=== PATIENT | female | born 1985 | race Caucasian/White ===

== ENCOUNTER 2019-02-18 09:55 | Emergency (ER) | payer OTHER ==
[~2019-02-18] VITALS: Ht 170.2 cm; Wt 67.5 kg
[2019-02-18 09:56] VITALS: BP 118/65
[2019-02-18] MEDS ORDERED: ONDANSETRON 4MG/2ML VIAL (J2405) IV ONE (10:15)
[2019-02-18] MEDS ORDERED: NS 1,000 ML IV ONE (10:15)
[2019-02-18 10:42] LABS: BASO % 0.7 % (0.0-1.0); EOS % 0.9 % (0.0-3.0); HEMATOCRIT 44.1 % (36.0-47.0); HEMOGLOBIN 14.8 g/dl (12.0-15.5); LYMPH # 1.2 10^3/uL (1.5-4.5); LYMPH % 24.9 % (24.0-44.0); MEAN CORPUSCULAR HEMOGLOBIN 34.2 pg (27.0-33.0); MEAN CORPUSCULAR HGB CONC 33.6 g/dl (32.0-36.5); MEAN CORPUSCULAR VOLUME 101.8 fl (80.0-96.0); MONO # 0.3 10^3/uL (0.0-0.8); MONO % 7.2 % (0.0-5.0); NEUTROPHILS # 3.1 10^3/uL (1.8-7.7); NEUTROPHILS % 66.1 % (36.0-66.0); PLATELET COUNT, AUTOMATED 229 10^3/uL (150-450); RED BLOOD COUNT 4.33 10^6/uL (4.00-5.40); WHITE BLOOD COUNT 4.6 10^3/uL (4.0-10.0)
[2019-02-18 11:10] LABS: ALT/SGPT 16 U/L (12-78); BLOOD UREA NITROGEN 6 MG/DL (7-18); CALCIUM LEVEL 8.7 MG/DL (8.5-10.1); CARBON DIOXIDE LEVEL 31 MEQ/L (21-32); CHLORIDE LEVEL 107 MEQ/L (98-107); CREATININE FOR GFR 0.72 MG/DL (0.55-1.30); GLOMERULAR FILTRATION RATE > 60.0 (>60); GLUCOSE, FASTING 79 MG/DL (70-100); POTASSIUM SERUM 3.9 MEQ/L (3.5-5.1); SODIUM LEVEL 142 MEQ/L (136-145)
[2019-02-18 11:11] LABS: ALBUMIN 3.6 GM/DL (3.2-5.2); BILIRUBIN,DIRECT 0.2 MG/DL (0.0-0.2); BILIRUBIN,TOTAL 0.7 MG/DL (0.2-1.0); LIPASE 120 U/L (73-393); TOTAL PROTEIN 6.8 GM/DL (6.4-8.2)
[2019-02-18 11:13] LABS: HCG, SERUM QUALITATIVE NEGATIVE (NEGATIVE)
[2019-02-18] MEDS ORDERED: METOCLOPRAMIDE INJ 10MG/2ML VIAL (J2765) IV ONE (12:30)
[2019-02-18] MEDS ORDERED: REGL10TA6 PO (13:07)
== END 2019-02-18 13:29 | disposition home or self-care (01) ==
LOC: M ED 09:55
DX: R19.7 Diarrhea, unspecified (principal); R11.2 Nausea with vomiting, unspecified; Z20.89 Contact with and (suspected) exposure to other communicable diseases; F17.210 Nicotine dependence, cigarettes, uncomplicated; Z88.1 Allergy status to other antibiotic agents
CPT/HCPCS: 80048; 80076; 83690; 84703; 85025; 96374; 96375; 99284; J2405; J2765

== ENCOUNTER → 2019-08-11 | Outpatient (CLI) | payer OTHER ==
[~2019-08-11] MED LIST: REGL10TA6 PO
[2019-08-11 18:14] LABS: HEMATOCRIT 44.1 % (36.0-47.0); HEMOGLOBIN 13.7 g/dl (12.0-15.5); MEAN CORPUSCULAR HEMOGLOBIN 32.2 pg (27.0-33.0); MEAN CORPUSCULAR HGB CONC 31.1 g/dl (32.0-36.5); MEAN CORPUSCULAR VOLUME 103.8 fl (80.0-96.0); PLATELET COUNT, AUTOMATED 300 10^3/uL (150-450); RED BLOOD COUNT 4.25 10^6/uL (4.00-5.40); WHITE BLOOD COUNT 8.8 10^3/uL (4.0-10.0)
[2019-08-11 18:32] LABS: BLOOD UREA NITROGEN 10 MG/DL (7-18); CALCIUM LEVEL 8.4 MG/DL (8.5-10.1); CARBON DIOXIDE LEVEL 21 MEQ/L (21-32); CHLORIDE LEVEL 110 MEQ/L (98-107); CREATININE FOR GFR 0.76 MG/DL (0.55-1.30); GLOMERULAR FILTRATION RATE > 60.0 (>60); GLUCOSE, FASTING 81 MG/DL (70-100); POTASSIUM SERUM 4.2 MEQ/L (3.5-5.1); SODIUM LEVEL 141 MEQ/L (136-145)
== END ==
LOC: M LRY 10:59
PROVIDERS: ATTEND Plastic Surgery Surgery of the Hand
DX: N62 Hypertrophy of breast (principal); N64.81 Ptosis of breast

== ENCOUNTER 2019-08-25 07:37 | Day surgery (SDC) | payer OTHER ==
[~2019-08-25] VITALS: Ht 172.7 cm; Wt 69.9 kg
[2019-08-25] VITALS (7 sets, daily range): BP systolic 112–124; BP diastolic 63–69
[~2019-08-25 07:37] MED LIST changes: +LR 1,000 ML IV SCH; +ceFAZolin SOD 1 GM in D5W MINI-BAG PLUS 50 ML IV ONE
[2019-08-25] MEDS ORDERED: BUPIVACAINE LIPOSOME/PF 1.3% 20ML VIAL (13.3MG/ML)(EXPAREL)(C9290 PER1MG) As Ordered ONE (08:13)
[2019-08-25] MEDS ORDERED: BACITRACIN PWD 50,000 UNITS VIAL As Ordered ONE (08:13)
[2019-08-25] MEDS ORDERED: LIDOCAINE 2% INJ 100 MG/5 ML SDV (FOR ANES.) As Ordered ONE (08:23)
[2019-08-25] MEDS ORDERED: ONDANSETRON 4MG/2ML VIAL (J2405) As Ordered ONE (08:23)
[2019-08-25] MEDS ORDERED: MIDAZOLAM INJ 2 MG/2 ML VIAL (J2250) As Ordered ONE (08:23)
[2019-08-25] MEDS ORDERED: dexameTHASONE 4 MG/ML 1ML VIAL (J1100) As Ordered ONE (08:23)
[2019-08-25] MEDS ORDERED: ROCURONIUM BROMIDE 50 MG/5 ML VIAL As Ordered ONE ×2 (08:23→11:02)
[2019-08-25] MEDS ORDERED: fentaNYL 250 MCG/5 ML INJECTION (J3010) As Ordered ONE (08:23)
[2019-08-25] MEDS ORDERED: propofoL 200 MG/20 ML VIAL As Ordered ONE ×2 (08:23→16:25)
[2019-08-25] MEDS ORDERED: ACETAMINOPHEN 1000MG 100ML IV BTL (OFIRMEV) (J0131 PER 10MG) As Ordered ONE (10:08)
[2019-08-25] MEDS ORDERED: PHENYLephrine HCL 500 MCG/5 ML (100MCG/ML) SYRINGE (J2370) As Ordered ONE ×2 (10:15→16:25)
[2019-08-25] MEDS ORDERED: HYDROmorphone HCL 2 MG/ML 1ML VIAL (J1170) As Ordered ONE (11:29)
[2019-08-25] MEDS ORDERED: GLYCOPYRROLATE INJ 0.2 MG/ML 2 ML VIAL As Ordered ONE (12:07)
[2019-08-25] MEDS ORDERED: NEOSTIGMINE 10 MG/10 ML VIAL (J2710) As Ordered ONE (12:07)
--- NOTE | 2019-08-25 13:15 | POST-OPPD ---
Postoperative Procedure Note Date Of Procedure: Aug 25, 2019 PREOPERATIVE DIAGNOSIS: Bilateral breast hypertrophy, ptosis POSTOPERATIVE DIAGNOSIS: same FINDINGS: Left breast larger than right. PROCEDURE: Bilateral mastopexy with small breast reduction. SURGEON: Dr Sales ANESTHESIA: General SPECIMENS: Right breast 109gm, Left breast 203gm ESTIMATED BLOOD LOSS: 150cc REPLACED: none DRAINS: 10mm DANDRE x 2 COMPLICATIONS: none POSTOPERATIVE CONDITION: stable [id number] LAYLA SALES DO Aug 25, 2019 13:15
[2019-08-25] MEDS ORDERED: fentaNYL 100 MCG/2 ML INJECTION (J3010) IV PRN (13:30)
[2019-08-25] MEDS ORDERED: HYDROMORPHONE HCL 0.5 MG/ 0.5 ML SYRINGE (J1170 PER 1) IV PRN (13:30)
[2019-08-25] MEDS ORDERED: oxyCODONE 5MG TAB PO PRN (13:30)
[2019-08-25] MEDS ORDERED: METOCLOPRAMIDE INJ 10MG/2ML VIAL (J2765) IV PRN (13:30)
[2019-08-25] MEDS ORDERED: LR 1,000 ML IV SCH (13:30)
[2019-08-25] MEDS ORDERED: ONDANSETRON 4MG/2ML VIAL (J2405) IV PRN ×2 (13:30→14:00)
[2019-08-25] MEDS ORDERED: ACETAMINOPHEN TAB 650MG DOSE (2X325MG) PO PRN (14:00)
[2019-08-25] MEDS ORDERED: fentaNYL 100 MCG/2 ML INJECTION (J3010) As Ordered ONE (15:58)
[2019-08-25] MEDS: LR 1,000 ML IV SCH (16:45)
[2019-08-25] MEDS: PERCOCET 5MG/325MG TAB PO PRN ×2 (16:45→20:49)
[2019-08-25] MEDS: ceFAZolin SOD 1 GM in D5W MINI-BAG PLUS 50 ML IV SCH (18:33)
[2019-08-25] MEDS: MORPHINE 4 MG/ML 1ML VIAL/SYRINGE (J2270) IV PRN ×2 (18:33→22:44)
[2019-08-25] MEDS ORDERED: PERCOCET 5MG/325MG TAB PO ONE (22:15)
[2019-08-25] MEDS ORDERED: PERCOCET 5MG/325MG TAB PO PRN (23:45)
[2019-08-26 02:00] VITALS: BP 110/69
[2019-08-26] MEDS: ceFAZolin SOD 1 GM in D5W MINI-BAG PLUS 50 ML IV SCH ×2 (02:26→10:00)
[2019-08-26] MEDS: PERCOCET 5MG/325MG TAB PO PRN ×3 (02:27→11:53)
[2019-08-26] MEDS: LR 1,000 ML IV SCH (04:08)
[2019-08-26 06:00] VITALS: BP 117/68
[2019-08-26 10:00] VITALS: BP 117/65
--- NOTE | 2019-08-26 12:41 | IPNPDOC ---
Subjective General Date/Time Seen The patient was seen on 08/26/19 at 12:34. Subject Chief Complaint/History The patient is a 34-year-old female admitted with a reason for visit of Bilateral Breast Hypertrophy And Ptosis. S/p BBR POD 1. Doing well. Pain much improvied, controlled with Percocet. Tolerating diet. Current Medications Current Medications Current Medications Medications (Trade) Dose Ordered Sig/Stephen Route PRN Reason Start Time Stop Time Status Last Admin Dose Admin Acetaminophen (Tylenol Tab) 650 mg Q6HP PRN PO MILD PAIN (PS 1-4) 08/25/19 14:00 08/25/19 21:22 Cefazolin Sodium 1 gm/Dextrose 50 ml @ 100 mls/hr Q8H IV 08/25/19 18:00 08/26/19 02:26 Fentanyl Citrate (Sublimaze) 25 mcg Q5MP PRN IV PAIN LEVEL 5-10 08/25/19 13:30 08/25/19 14:30 DC Hydromorphone HCl (Dilaudid) 0.4 mg Q5MP PRN IV PAIN LEVEL 4-7 08/25/19 13:30 08/25/19 14:30 DC Lactated Ringer's 1,000 ml @ 75 mls/hr [id number] IV 08/25/19 14:00 08/26/19 07:49 DC 08/26/19 04:08 Lactated Ringer's 1,000 ml @ 100 mls/hr Q10H IV 08/25/19 06:00 08/25/19 13:24 DC Lactated Ringer's 1,000 ml @ 100 mls/hr Q10H IV 08/25/19 13:30 08/25/19 14:30 DC Metoclopramide HCl (REGLAN INJection) 10 mg Q6HP PRN IV NAUSEA OR VOMITING 08/25/19 13:30 08/25/19 14:30 DC Morphine Sulfate (Morphine Sulfate Inj) 4 mg Q4HP PRN IV SEVERE PAIN (PS 8-10) 08/25/19 14:00 08/26/19 07:49 DC 08/25/19 22:44 Ondansetron HCl (ZOFRAN INJection) 4 mg Q4HP PRN IV NAUSEA OR VOMITING 08/25/19 13:30 08/25/19 14:30 DC Ondansetron HCl (ZOFRAN INJection) 4 mg Q4HP PRN IV NAUSEA 08/25/19 14:00 Oxycodone HCl (Roxicodone, Oxyir) 5 mg ASDIRECTED PRN PO PAIN LEVEL 1-4 08/25/19 13:30 08/25/19 14:30 DC Oxycodone/ Acetaminophen (Percocet 5mg/ 325mg Tablet) 1 tab Q4HP PRN PO MODERATE PAIN (PS 5-7) 08/25/19 14:00 08/25/19 23:31 DC 08/25/19 20:49 Oxycodone/ Acetaminophen (Percocet 5mg/ 325mg Tablet) 1 tab Q4HP PRN PO MILD/MODERATE PAIN (PS 1-7) 08/25/19 23:45 Oxycodone/ Acetaminophen (Percocet 5mg/ 325mg Tablet) 2 tab Q4HP PRN PO MODERATE PAIN (PS 5-7) 08/25/19 23:30 08/26/19 11:53 Allergies Coded Allergies: azithromycin (Verified Allergy, Intermediate, hives, 02/18/19) Objective Physical Examination Examination GENERAL APPEARANCE:Patient seen, laying in bed, awake, alert, and oriented. Comfortable, in no acute distress. SKIN: Warm and moist. BREAST: Soft, post surgical edema mild. minimal non expanding ecchymosis. Incisions intact. DANDRE drains 25,20cc/24H LUNGS: Clear to auscultation bilaterally. No wheezing appreciated. HEART: No chest wall abnormalities. Regular rate and rhythm with no murmurs appreciated. ABDOMEN: Abdomen is soft NT/ND Vital Signs Vital Signs Date Time Temp Pulse Resp B/P (MAP) Pulse Ox O2 Delivery O2 Flow Rate FiO2 08/26/19 11:53 18 Room Air 08/26/19 10:00 98.4 77 117/65 (82) 100 I&Os I&O- Last 24 Hours up to 6 AM 08/26/19 06:00 Intake Total 3060 ml Output Total 3545 ml Balance -485 ml Impression S/p bilateral breast reduction. Stable for discharge. Monitor drains at home. Dressing changed. Keep surgical bra on F/up appointment Saturday at 8:45am Plan / VTE VTE Prophylaxis Ordered?: Yes LAYLA SALES DO Aug 26, 2019 12:41
[2019-08-26] MEDS ORDERED: PERCOCET PO (12:45)
--- NOTE | 2019-08-27 09:49 | RO ---
DATE OF OPERATION: 08/25/2019 PREOPERATIVE DIAGNOSES: Bilateral breast hypertrophy, bilateral breast ptosis. POSTOPERATIVE DIAGNOSES: Bilateral breast hypertrophy, bilateral breast ptosis. PROCEDURE: Bilateral mastopexy with small breast reduction. ATTENDING SURGEON: Shakila Meza DO ANESTHESIA: General. SPECIMENS: Right breast 109 grams, left breast 203 grams. BLOOD LOSS: 150 mL. REPLACEMENT: No replacement. DRAINS: 10 mm Jamie-Holloway drains times two. COMPLICATIONS: No complications. PROCEDURE: This is a 34-year-old female who is complaining of upper back pain. She is an active duty person. She needs to have her breasts reduced. She has a significant difference between her left and right. The patient was a good candidate for mastopexy with small breast reduction to correct symmetry for her breasts. All the risks, benefits and alternatives were discussed with the patient. She is ready to proceed. The day of surgery she was marked in an upright position and she was then brought into the operating room and placed in a supine position. Preoperative antibiotics were given. Sequential stockings were placed on her lower calves. General anesthesia was induced. She was prepped and draped in the usual sterile fashion. We started our procedure on the right side. Her right side is the smaller side. From sternal notch to nipple areolar complex it is 24.5 cm and we are going up to 20 cm, which is going to be our new position for the nipple areolar complex. We outlined the nipple areola at 42 mm in diameter and an incision was carried out and all the scoring is done according to superomedial pedicle fashion. The resection started using electrocautery and PEAK cautery, and inferior lateral portion of the breast was resected. Hemostasis was obtained and then the pedicle was deepithelialized using Liriano scissors. The wound was irrigated and then Exparel was infiltrated in the breast tissue throughout, 6 mL on the right side, and then the pedicle was then turned superiorly and a new mound was recreated using #0 Vicryl sutures. The pillars were then closed with interrupted #3-0 Monocryl sutures, vertical limb was 6.5 cm. Excess tissue was measured and resected creating inferior horizontal scar, a 10 mm Jamie-Holloway drain was placed for that lateral portion of the incision. The nipple areolar complex was sutured in place with interrupted #3-0 and #4-0 Monocryl sutures and a #5-0 Plain running stitch. Then we turned our attention to the left side, creating the breast from the left side, which was larger, to match the right side. Again, the nipple areolar complex was measured at 42 mm in diameter and then a knife was used to make the incision and scoring the rest of the incisions according to superior medial pedicle. Then we used the electrocautery and PEAK cautery to dissect the inferolateral portion of the breast. Total resection on the left side is 203 grams. The measurements from sternal notch to nipple areolar complex is 26.5 cm on the left side. After resection was completed, the wound was irrigated. The pedicle was deepithelialized using Liriano scissors and at this point Exparel was infiltrated in the breast tissue, 7 mL total. Also some in the pectoralis major muscle. Then the pedicle was turned superiorly to its new location at 20 cm from the sternal notch. Then breast mound was recreated using #0 Vicryl sutures and then the pedicles were closed with #3-0 Monocryl suture at the vertical limb of 6.5 cm. Excess tissue is measured and resected creating the inferior horizontal scar. 10 mm Jamie-Holloway drain was placed through the lateral portion of that incision and sutured in place. The nipple areolar complex was brought into view and sutured in place with interrupted #3-0 and #4-0 Monocryl sutures and #5-0 Plain Gut suture. Prineo dressing, bulky dressing and a Xeroform to the nipple areolar complex were applied with a surgical bra. The patient was extubated in the operating room without any difficulties and transferred to the recovery room in stable condition. MAKEDA
== END 2019-08-26 14:00 | disposition home or self-care (01) ==
LOC: M SDC 07:37 → M MS5PR 14:47 → M SDC 08-26 14:00
PROVIDERS: ATTEND Plastic Surgery Surgery of the Hand
DX: N62 Hypertrophy of breast (principal); N64.81 Ptosis of breast; K21.9 Gastro-esophageal reflux disease without esophagitis; D64.9 Anemia, unspecified; Z88.1 Allergy status to other antibiotic agents; G43.909 Migraine, unspecified, not intractable, without status migrainosus; Z87.891 Personal history of nicotine dependence
CPT/HCPCS: 19316; 19318; 81025; 88305; 96361; 96374; 96376; C9290; J0131; J0690; J1100; J1170; J2250; J2270; J2370; J2405; J2710; J3010

== ENCOUNTER 2020-03-23 09:05 | Emergency (ER) | payer OTHER ==
[~2020-03-23] VITALS: Ht 170.2 cm; Wt 70.4 kg
[~2020-03-23 09:05] MED LIST changes: -LR 1,000 ML IV SCH; +PERCOCET PO; -ceFAZolin SOD 1 GM in D5W MINI-BAG PLUS 50 ML IV ONE
[2020-03-23] MEDS ORDERED: EXCETAB33 PO (09:11)
[2020-03-23] MEDS ORDERED: IBUP-1114 PO (09:11)
--- NOTE | 2020-03-23 10:00 | REPVR ---
PROCEDURE INFORMATION: Exam: XR Right Foot Complete Exam date and time: 03/23/2020 9:23 AM Age: 34 years old Clinical indication: Pain; Foot; Right; Additional info: Trauma, 5th mt pain TECHNIQUE: Imaging protocol: XR Right foot. Views: 3 or more views. COMPARISON: No relevant prior studies available. FINDINGS: Bones/joints: Nondisplaced transverse fracture at the base of the 5th metatarsal, best appreciated on the oblique view. The bones are otherwise intact. No dislocation. Soft tissues: Mild soft tissue swelling along the lateral aspect of the foot. IMPRESSION: Nondisplaced fracture base of 5th metatarsal. Electronically signed by: Ezequiel De Luna On 03/23/2020 10:00:09 AM
[2020-03-23 10:51] VITALS: BP 129/79
== END 2020-03-23 10:59 | disposition home or self-care (01) ==
LOC: M ED 09:05
DX: S92.354A Nondisplaced fracture of fifth metatarsal bone, right foot, initial encounter for closed fracture (principal); X50.0XXA Overexertion from strenuous movement or load, initial encounter; Y92.410 Unspecified street and highway as the place of occurrence of the external cause

== ENCOUNTER → 2020-08-23 | Outpatient (CLI) | payer OTHER ==
[~2020-08-23] MED LIST changes: +EXCETAB33 PO; +IBUP-1114 PO
== END ==
LOC: M RAD 09:09
PROVIDERS: ATTEND Podiatrist Foot & Ankle Surgery
DX: S92.354A Nondisplaced fracture of fifth metatarsal bone, right foot, initial encounter for closed fracture (principal); X58.XXXA Exposure to other specified factors, initial encounter; Y92.89 Other specified places as the place of occurrence of the external cause; Y93.9 Activity, unspecified; Y99.9 Unspecified external cause status